=== PATIENT | male | born 1945 | race Caucasian/White ===

== ENCOUNTER 2016-12-20 14:40 | Outpatient (RCR) | payer BC ==
[~2016-12-20 14:40] MED LIST: ASPI-892 PO; ATOR40TA70 PO; CARV6.25 PO; CIPR500T4 PO; CYCL10TA45; DEXL60CA5 PO; FISH1CAP15 PO; HYDR-3816 PO; ISOS30TA3 PO; METO-272 PO; NF-SKEL800; NFAMINITAB PO; NITR0.4T SL; TICA90TA PO; VITA400T9 PO; [UNRECOGNIZED DRUG - OTHER] PO
== END 2017-03-20 | disposition home or self-care (01) ==
LOC: CARD 14:40
PROVIDERS: ATTEND Physician Assistant
DX: I25.118 Atherosclerotic heart disease of native coronary artery with other forms of angina pectoris (principal); E78.2 Mixed hyperlipidemia; I10 Essential (primary) hypertension
CPT/HCPCS: 93225; 93226

== ENCOUNTER → 2018-07-29 | Outpatient (CLI) | payer BC ==
[~2018-07-29] MED LIST changes: +HYDR-34 PO; -HYDR-3816 PO
== END ==
LOC: CARD 08:23
PROVIDERS: ATTEND Physician Assistant
DX: I25.10 Atherosclerotic heart disease of native coronary artery without angina pectoris (principal); K21.9 Gastro-esophageal reflux disease without esophagitis; E78.5 Hyperlipidemia, unspecified; I10 Essential (primary) hypertension; I08.1 Rheumatic disorders of both mitral and tricuspid valves
CPT/HCPCS: 93306

== ENCOUNTER → 2018-08-03 | Outpatient (CLI) | payer BC ==
[~2018-08-03] MED LIST changes: +CATHETER FLUSH 10 ML SYR IV PRN
[2018-08-03 08:48] VITALS: BP 172/79
--- NOTE | 2018-08-03 13:37 | STRESS TEST ---
DATE OF SERVICE: 08/03/2018 EXERCISE MYOVIEW STRESS TEST REPORT REFERRING PHYSICIAN: Dr. Lindsey. Baseline heart rate is 60. Baseline blood pressure is 170/79. Baseline EKG is sinus rhythm with no ischemic changes. In summary, the patient was injected with 10.75 mCi of technetium-99 Myoview and the resting images were obtained. Then, the patient started exercising with a baseline heart rate, blood pressure and EKG as mentioned above. At peak stress level, the patient was injected with 31.6 mCi of technetium-99 Myoview. The patient was able to exercise for a total of 9 minutes on standard John protocol. With peak exercise level, EKG was showing minimal nondiagnostic changes. Occasional PVCs were noted. During recovery, heart rate and blood pressure returned to baseline. EKG returned to baseline. The resting and stress images were reviewed and compared in the short axis, horizontal long axis and vertical long axis views. Review of the images showed diaphragmatic attenuation with decreased uptake involving the whole inferior wall, inferior apex and true apex with mild reversibility at the true apex and the inferior apex. SSS is 10, SDS 4 and TID value 0.95. On the gated images, the left ventricle appeared to be in normal size with mild hypokinesia at the septum, anteroseptum and inferoseptum. Calculated ejection fraction is 49%. CONCLUSION: 1. Good exercise tolerance, a total of 9 minutes on standard Ojhn protocol, 10.5 METS achieving 93% of maximum expected heart rate. 2. Baseline hypertension persisted throughout the test. 3. Minimal nondiagnostic EKG changes with exercise returned to baseline during recovery. 4. Diaphragmatic attenuation with mild ischemia involving the whole inferior wall, inferior apex and true apex. 5. Normal left ventricular size with septal hypokinesia. Calculated ejection fraction is 49%. Job ID: [id number] DocumentID: [id number] Dictated Date: 08/03/2018 10:59:26 Associate Professor Plant Pathology Date: 08/03/2018 13:37:25 Dictated By: MICHELLE ESQUIVEL MD
== END ==
LOC: CARD 07:09
PROVIDERS: ATTEND Physician Assistant
DX: I25.10 Atherosclerotic heart disease of native coronary artery without angina pectoris (principal); I10 Essential (primary) hypertension; E78.5 Hyperlipidemia, unspecified; K21.9 Gastro-esophageal reflux disease without esophagitis
CPT/HCPCS: 78452; 93017

== ENCOUNTER 2018-08-19 06:41 | Day surgery (SDC) | payer BC ==
[~2018-08-19] VITALS: Ht 167.6 cm; Wt 76.2 kg
[2018-08-19] VITALS (11 sets, daily range): BP systolic 128–168; BP diastolic 64–82
[~2018-08-19 06:41] MED LIST changes: -CATHETER FLUSH 10 ML SYR IV PRN
--- OUTSIDE RECORDS SUMMARY | 2018-08-19 06:44 | XMS REPORT | Continuity of Care Document ---
Author Author [facility] Organization [facility] Address Unknown Phone Unavailable Allergies Active Description Code Type Severity Reaction Onset Reported/Identified Relationship to Patient Clinical Status Yes No Known Drug Allergies [id number] Drug Allergy Unknown N/A 05/26/2008 Medications There is no data. Problems Date Dx Coded Attending Type Code Diagnosis Diagnosed By 10/17/2014 YANICK MOTA, DAVID [place] Ot 722.52 10/17/2014 Ot 411.1 INTERMED CORONARY SYND 10/17/2014 Ot 414.01 CORONARY ATHEROSCLEROSIS OF [place] CORON 10/17/2014 Ot 794.30 ABN CARDIOVASC STUDY NOS 10/17/2014 Ot V58.69 OTH MED,LT, CURRENT USE 11/24/2014 YANICK MOTA, DAVID [place] Ot 729.81 12/13/2014 YANICK MOTA, DAVID [place] Ot V45.81 12/13/2014 YANICK MOTA, DAVID [place] Ot V57.89 01/21/2015 DAVID HERNDON MD Ot V45.81 01/21/2015 YANICK MOTA, DAVID [place] Ot V57.89 03/12/2015 DAVID HERNDON MD Ot V45.81 AORTOCORONARY BYPASS 03/12/2015 YANICK MOTA, DAVID [place] Ot V57.89 REHABILITATION PROC NEC 09/13/2015 YANICK MOTA, DAVID [place] Ot 722.52 09/13/2015 DAVID HERNDON MD Ot 729.81 09/13/2015 DAVID HERNDON MD Ot V45.81 09/13/2015 DAVID HERNDON MD Ot V57.89 09/21/2015 MICHELLE ESQUIVEL MD Ot E78.5 HYPERLIPIDEMIA, UNSPECIFIED 09/21/2015 MICHELLE ESQUIVEL MD Ot I10 ESSENTIAL (PRIMARY) HYPERTENSION 09/21/2015 MICHELLE ESQUIVEL MD Ot I25.10 ATHSCL HEART DISEASE OF [place] CORONARY 09/21/2015 MICHELLE ESQUIVEL MD Ot I25.82 CHRONIC TOTAL OCCLUSION OF CORONARY [place] 09/21/2015 MICHELLE ESQUIVEL MD Ot R07.9 CHEST PAIN, UNSPECIFIED 09/21/2015 MICHELLE ESQUIVEL MD Ot R94.39 ABNORMAL RESULT OF OTHER CARDIOVASCULAR 09/21/2015 MICHELLE ESQUIVEL MD, Ot Z79.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 THERAPY 09/21/2015 MICHELLE ESQUIVEL MD, Ot Z95.1 PRESENCE OF AORTOCORONARY BYPASS GRAFT 09/22/2015 DAVID HERNDON MD Ot 722.52 09/22/2015 DAVID HERNDON MD Ot 729.81 09/22/2015 DAVID HERNDON MD Ot V45.81 09/22/2015 DAVID HERNDON MD, Ot V57.89 09/22/2015 MICHELLE ESQUIVEL MD, Ot E78.2 09/22/2015 MICHELLE ESQUIVEL MD, Ot I10 09/22/2015 MICHELLE ESQUIVEL MD Ot I20.8 09/22/2015 MICHELLE ESQUIVEL MD Ot I25.10 03/16/2016 LANE ESPINOSA MD Ot M54.5 LOW BACK PAIN 03/16/2016 LANE ESPINOSA MD Ot N13.2 HYDRONEPHROSIS WITH RENAL AND URETERAL C 03/16/2016 LANE ESPINOSA MD Ot R11.0 NAUSEA 03/18/2016 LANE ESPINOSA MD Ot M54.5 LOW BACK PAIN 03/18/2016 LANE ESPINOSA MD Ot N13.2 HYDRONEPHROSIS WITH RENAL AND URETERAL C 03/18/2016 LANE ESPINOSA MD Ot R11.0 NAUSEA 06/26/2016 DAVID HERNDON MD Ot 722.52 LUMB/LUMBOSAC DISC DEGEN 06/26/2016 DAVID HERNDON MD Ot 729.81 SWELLING OF LIMB 06/26/2016 DAVID HERNDON MD Ot V45.81 AORTOCORONARY BYPASS 06/26/2016 DAVID HERNDON MD Ot V57.89 REHABILITATION PROC NEC 06/26/2016 MICHELLE ESQUIVEL MD Ot E78.2 MIXED HYPERLIPIDEMIA 06/26/2016 MICHELLE ESQUIVEL MD Ot I10 ESSENTIAL (PRIMARY) HYPERTENSION 06/26/2016 SIERRA MOTA, MICHELLE Obregon Ot I20.8 OTHER FORMS OF ANGINA PECTORIS 06/26/2016 SIERRA MOTA, MICHELLE Obregon Ot I25.10 ATHSCL HEART DISEASE OF [place] CORONARY 06/27/2016 SINTIA BROWN, SAVANNAH Hernandez Ot E78.2 MIXED HYPERLIPIDEMIA 06/27/2016 SINTIA BROWN, SAVANNAH K Ot I10 ESSENTIAL (PRIMARY) HYPERTENSION 06/27/2016 SAVANNAH MENON Ot I25.10 ATHSCL HEART DISEASE OF [place] CORONARY 06/27/2016 SAVANNAH MENON K Ot K21.9 GASTRO-ESOPHAGEAL REFLUX DISEASE WITHOUT 07/02/2016 SARAN MENONTH K Ot E78.2 MIXED HYPERLIPIDEMIA 07/02/2016 SARAN MENONTH K Ot I10 ESSENTIAL (PRIMARY) HYPERTENSION 07/02/2016 SAVANNAH MENON Ot I25.10 ATHSCL HEART DISEASE OF [place] CORONARY 07/02/2016 SAVANNAH MENON K Ot K21.9 GASTRO-ESOPHAGEAL REFLUX DISEASE WITHOUT 07/15/2016 SARAN MENONTH K Ot E78.2 MIXED HYPERLIPIDEMIA 07/15/2016 SARAN MENONTH K Ot I10 ESSENTIAL (PRIMARY) HYPERTENSION 07/15/2016 SAVANNAH MENON Ot I25.10 ATHSCL HEART DISEASE OF [place] CORONARY 07/15/2016 SAVANNAH MENON K Ot K21.9 GASTRO-ESOPHAGEAL REFLUX DISEASE WITHOUT 01/09/2017 SAVANNAH MENON K Ot E78.2 MIXED HYPERLIPIDEMIA 01/09/2017 LOBO MENONDITH K Ot I10 ESSENTIAL (PRIMARY) HYPERTENSION 01/09/2017 SARAN MENONTH K Ot I25.118 ATHSCL HEART DISEASE OF [place] COR ART W 03/20/2017 SAVANNAH MENON K Ot E78.2 MIXED HYPERLIPIDEMIA 03/20/2017 LOBO MENONDITH K Ot I10 ESSENTIAL (PRIMARY) HYPERTENSION 03/20/2017 SAVANNAH MENON K Ot I25.118 ATHSCL HEART DISEASE OF [place] COR ART W 03/25/2017 SAVANNAH MENON Ot E78.2 MIXED HYPERLIPIDEMIA 03/25/2017 SAVANNAH MENON Ot I10 ESSENTIAL (PRIMARY) HYPERTENSION 03/25/2017 SAVANNAH MENON Ot I25.118 ATHSCL HEART DISEASE OF [place] COR ART W 07/31/2018 SAVANNAH MENON Ot E78.5 HYPERLIPIDEMIA, UNSPECIFIED 07/31/2018 SAVANNAH MENON Ot I08.1 RHEUMATIC DISORDERS OF BOTH MITRAL AND T 07/31/2018 SAVANNAH MENON Ot I10 ESSENTIAL (PRIMARY) HYPERTENSION 07/31/2018 SAVANNAH MENON Ot I25.10 ATHSCL HEART DISEASE OF [place] CORONARY 07/31/2018 SAVANNAH MENON Ot K21.9 GASTRO-ESOPHAGEAL REFLUX DISEASE WITHOUT 08/05/2018 SAVANNAH MENON Ot E78.5 HYPERLIPIDEMIA, UNSPECIFIED 08/05/2018 SAVANNAH MENON Ot I10 ESSENTIAL (PRIMARY) HYPERTENSION 08/05/2018 SAVANNAH MENON Ot I25.10 ATHSCL HEART DISEASE OF [place] CORONARY 08/05/2018 SAVANNAH MENON Ot K21.9 GASTRO-ESOPHAGEAL REFLUX DISEASE WITHOUT Procedures There is no data. Results There is no data. Encounters ACCT No. Visit Date/Time Discharge Status Pt. Type Provider Facility Loc./Unit Complaint [id number] 08/03/2018 07:09:00 08/03/2018 23:59:59 CLS Outpatient SAVANNAH MENON [facility] CARD CAD, ESOPHAGEAL REFLUX, HLD,HTN [id number] 07/29/2018 08:23:00 07/29/2018 23:59:59 CLS Outpatient SAVANNAH MENON [facility] CARD CAD, ESOPHAGEAL REFLUX,HLD,HTN [id number] 03/21/2017 15:15:00 03/21/2017 23:59:59 CLS Preadmit SAVANNAH MENON [facility] CARD I25.10,I20.8, E78.2,I10 [id number] 12/20/2016 14:40:00 03/20/2017 00:01:00 DIS Outpatient SAVANNAH MENON [facility] CARD I25.10,I20.8 ,E78.2,I10 [id number] 06/26/2016 09:37:00 06/26/2016 23:59:59 CLS Outpatient SAVANNAH MENON [facility] CARD CAD,GERD,HLD ,HTN [id number] 03/16/2016 17:56:00 03/16/2016 20:34:[address] ESPINOSA MD [facility] ER L SIDE LOWER BACK/ABD PAIN [id number] 09/20/2015 06:43:00 09/20/2015 23:59:59 CLS Outpatient MICHELLE ESQUIVEL MD [facility] CATH ABNORMAL STRESS TEST,CAD ,HLP,HTN,CHEST PAIN [id number] 09/13/2015 07:31:00 09/13/2015 23:59:59 CLS Outpatient MICHELLE ESQUIVEL MD [facility] CARD CAD,CHEST PAIN CARDIAC, HTN,HLD [id number] 03/13/2015 10:00:00 03/13/2015 23:59:59 CLS Preadmit DAVID HERNDON MD [facility] CR CABG [id number] 03/08/2015 11:46:00 03/12/2015 00:01:00 DIS Outpatient DAVID HERNDON MD [facility] CR CABG [id number] 11/14/2014 15:59:00 11/14/2014 23:59:59 CLS Outpatient DAVID HERNDON MD [facility] RAD SWELLING OF LOWER LIMB [id number] 05/31/2013 15:36:00 05/31/2013 23:59:59 CLS Outpatient DAVID HERNDON MD [facility] RAD BACK PAIN [id number] 08/19/2018 09:00:00 PEN Preadmit MICHELLE ESQUIVEL MD [facility] CATH ABN STRESS TEST [id number] 10/17/2014 08:23:00 Document Registration
[2018-08-19] MEDS ORDERED: NS IV 1000 ML 1,000 ML ONE (06:52)
[2018-08-19] MEDS ORDERED: HEParin (CATH LAB) 2,000 ML IV ONE (06:52)
[2018-08-19] MEDS ORDERED: LIDOCAINE 1% INJ 20 ML 20 ML VIAL ONE (06:52)
[2018-08-19] MEDS ORDERED: NS IV 1000 ML 1,000 ML IV SCH ×2 (07:00→09:14)
[2018-08-19 07:17] LABS: BILIRUBIN,URINE NEGATIVE (NEGATIVE); CLARITY,URINE CLEAR; COLOR,URINE YELLOW; GLUCOSE, URINE (UA) NEGATIVE (NEGATIVE); KETONES,URINE NEGATIVE (NEGATIVE); LEUKOCYTE ESTERASE ,URINE NEGATIVE (NEGATIVE); NITRITE,URINE NEGATIVE (NEGATIVE); PH,URINE 5 (5-9); PROTEIN,URINE NEGATIVE (NEGATIVE); UROBILINOGEN,URINE NORMAL (NORMAL)
[2018-08-19 07:17] LABS: HEMOGLOBIN 12.4 G/DL (13.3-17.7); MEAN PLATELET VOLUME 10.1 FL (7.4-10.4); RED BLOOD COUNT 4.27 10^6/uL (4.35-5.85); RED CELL DISTRIBUTION WIDTH 13.1 % (10.0-14.5); WHITE BLOOD COUNT 4.9 10^3/uL (4.3-11.0)
[2018-08-19 07:24] LABS: BACTERIA,URINE NEGATIVE /HPF; RBC,URINE RARE /HPF; WBC,URINE RARE /HPF
[2018-08-19 07:27] LABS: PROTHROMBIN TIME PATIENT 13.2 SEC (12.2-14.7)
[2018-08-19] MEDS ORDERED: MV-M1TAB38 PO (07:27)
[2018-08-19] MEDS ORDERED: LISI-556 PO (07:27)
[2018-08-19] MEDS ORDERED: FERR-84 PO (07:27)
[2018-08-19] MEDS ORDERED: FISH1CAP15 PO (07:27)
[2018-08-19] MEDS ORDERED: ASPI-586 PO (07:27)
[2018-08-19] MEDS ORDERED: VITA200C60 PO (07:27)
[2018-08-19] MEDS ORDERED: MIDAZOLAM 5 MG/5 ML (VERSED) VIAL ONE (07:29)
[2018-08-19] MEDS ORDERED: fentaNYL INJECTION 100 MCG/2 ML AMP ONE (07:29)
--- NOTE | 2018-08-19 07:31 | Diagnostic Imaging Report ---
INDICATION: Abnormal stress test, chest pain, coronary artery disease, hypertension.. TECHNIQUE: Single view chest 7:20 a.m. CORRELATION STUDY: 09/20/2015. FINDINGS: Poststernotomy changes. Heart size, mediastinum and vasculature overall within normal limits. Lung marquez remain relatively clear. IMPRESSION: 1. Generally stable chest demonstrate no acute abnormality. Poststernotomy changes. Dictated by: Dictated on workstation # [id number]
[2018-08-19 07:37] LABS: ALANINE AMINOTRANSFERASE 40 U/L (0-55); ALBUMIN 4.1 GM/DL (3.2-4.5); ALKALINE PHOSPHATASE 74 U/L (40-136); BILIRUBIN,TOTAL 0.6 MG/DL (0.1-1.0); BUN/CREATININE RATIO 17; CALCIUM 8.7 MG/DL (8.5-10.1); CARBON DIOXIDE 25 MMOL/L (21-32); CHLORIDE 106 MMOL/L (98-107); CHOLESTEROL 100 MG/DL (< 200); CREATININE SERUM 0.86 MG/DL (0.60-1.30); GFR ESTIMATED > 60; GLUCOSE 99 MG/DL (70-105); HDL CHOLESTEROL 33 MG/DL (40-60); POTASSIUM 3.7 MMOL/L (3.6-5.0); SODIUM 141 MMOL/L (135-145); TOTAL PROTEIN 6.9 GM/DL (6.4-8.2); TRIGLYCERIDES 60 MG/DL (<150); VLDL CHOLESTEROL 12 MG/DL (5-40)
[2018-08-19] MEDS ORDERED: FLU QUADRIvalent (5+ YOA) 2018-2019 (AFLURIA) 0.5 ML IM ONE (07:45)
--- NOTE | 2018-08-19 08:42 | Cardiac Procedure Note-CS/ASA ---
Pre-Procedure Note Pre-Op Procedure Note H&P Reviewed The H&P was reviewed, patient examined and no changes noted. Date H&P Reviewed: Aug 19, 2018 Time H&P Reviewed: 08:42 Conscious Sedation Pre-Proced Time 08:42 ASA Score 3 For ASA 3 and 4: Consider anesthesia and medical clearance. Also, for patients with a history of failed moderate sedation consider anesthesia. Airway Lungs Heart ASA score ASA 1: a normal healthy patient ASA 2: a patient with a mild systemic disease (mid diabetes, controlled hypertension, obesity x ASA 3: a patient with a severe systemic disease that limits activity (angina , COPD, prior Myocardial infarction) ASA 4: a patient with an incapacitating disease that is a constant threat to life (CHF, renal failure) ASA 5: a moribund patient not expected to survive 24 hrs. (ruptured aneurysm) ASA 6: a declared brain patient whose organs are being harvested. For emergent operations, add the letter E after the classification Mallampati Classification Grade 3 Sedation Plan Analgesia, Amnesia, Plan communicated to team members, Discussed options with patient/fam, Discussed risks with patient/fam The patient is an appropriate candidate to undergo the planned procedure, sedation, and anesthesia. The patient immediately re-assessed prior to indication. MICHELLE ESQUIVEL MD Aug 19, 2018 08:42
[2018-08-19] MEDS ORDERED: PATIENT MAY USE OWN MEDS, ALL PO SCH (09:15)
--- NOTE | 2018-08-19 09:17 | Discharge Inst-Post CATH ---
Discharge Inst-CATH/EP Post Cardiac Cath/EP D/C Inst Follow Up/Plan Appointment with Dr Awad's office in 2-4 weeks CARDIAC CATH DISCHARGE INSTRUCTIONS *Hold Metformin for 48 hours post heart cath. ACTIVITY * Go Home directly and rest. * Limit activity of the leg (or wrist if it was used) for 7 days including aerobics, swimming, jogging, bicycling, etc. * Restrict stair-climbing for 7 days if possible, if not, climb up with your non -cath leg, then bring together on the same step. * Avoid lifting, pushing, pulling or excessive movement of the affected extremity for 7 days. * Customary sexual activity may be resumed after 2 days-use caution not to use a position that strains or causes pain to the affected extremity. * No driving for 24 hours. * NO SMOKING. * Avoid straining for bowel movements for 7 days. * Gentle walking on level ground is allowed. * Returning to work will depend on the type of procedure and the results. Your doctor will discuss this with you. CALL YOUR DOCTOR FOR ANY OF THE FOLLOWING: *If bleeding from the puncture site occurs- Apply gentle pressure to site with clean cloth and call your doctor or EMS. * If a knot or lump forms under the skin, increases in size, or causes pain. * If bruising appears to be worsening or moving further down your leg instead of disappearing. * Temperature above 101 F. CARE OF YOUR GROIN INCISION; * Bruising or purple discoloration of the skin near the puncture site is common. * You may shower only, no bathtub bathing for 5 days. Be careful to avoid slipping as your leg may feel stiff. * If a closure device was used on your femoral artery, please see the attached guide regarding care of the device and your leg. * Leave the dressing on, until removed by office staff. CARE OF YOUR WRIST INCISION; * Bruising or purple discoloration of the skin near the puncture site is common. * You may shower. * DO NOT submerge wrist. * Leave dressing on, until removed by office staff.. MICHELLE AWAD MD Aug 19, 2018 09:17
--- NOTE | 2018-08-19 09:23 | Cardiac Cath Report ---
Cardiac Cath Report Physician (s)/Jalousie Installer (s) Physician MICHELLE ESQUIVEL MD Pre-Procedure Diagnosis Pre-Procedure Diagnosis: CAD Post-Procedure Note Procedure Start Date: Aug 19, 2018 Name of Procedure: left heart catheterization Vein graft and FRANCIS angiogram Findings/Procedure Note PROCEDURE NOTE: After explaining the procedure to the patient, all pros and cons were explained , all questions were answered. The patient signed the consent and then he was placed on the cardiac catheterization laboratory. Groin was prepped SL fashion local anesthesia was used. Sheath placed in the right femoral artery. Benji right and left catheter were used to access the coronary system. Pigtail was used to access the left ventricular cavity, Benji right catheter was used to access the vein graft, vein graft angiogram was done, advanced to the FRANCIS and FRANCIS angiogram was done. Left ventriculogram was done At the end of the procedure the sheath was removed. Closure device was used FINDINGS: Hemodynamics LV 121/20, end-diastolic pressure of 20 Aorta 126/54 mean of 80 ANATOMY: Left Main has severe distal stenosis Left Anterior Descending has severe ostial stenosis, FRANCIS to LAD is patent, beyond the anastomosis point there is an area of moderate to severe stenosis, the artery is fairly small about 1 mm in diameter. Not amendable to intervention Left Circumflex has severe ostial stenosis, the vein graft to the first obtuse marginal branch is patent, vein graft to the second obtuse marginal branch is occluded Right Coronory Artery has 60 percent ostial stenosis, stents are patent in the mid and distal right coronary artery, the PDA is occluded and the vein graft to the PDA is occluded LV Gram was not done, pressure was measured CONCLUSION: 1. Severe distal left main coronary artery stenosis involving the ostial LAD and circumflex artery corrected by the bypass arteries 2. Patent FRANCIS to LAD with severe stenosis beyond the anastomosis point, the artery at that area is fairly small about 1 mm in diameter. Medical therapy is recommended 3. Patent vein graft to the first obtuse marginal branch, occluded vein graft to the second obtuse marginal branch 4. 60 percent ostial right coronary artery stenosis, patent stent in the mid and distal right coronary artery, occluded right PDA and vein graft to the PDA 5. Mildly elevated left ventricular end-diastolic pressure DISCUSSION AND RECOMMENDATION: small vessel disease not amendable to percutaneous intervention, medical therapy is recommended Anesthesia Type: Conscious Sedation Estimated blood loss (mL): 20 ml Contrast Amount: 63 ml Total Radiation Dose: 395 mGy Post-Procedure Diagnosis Post-operative diagnosis: Coronary artery disease Hypertension Hyperlipidemia Chest pain MICHELLE ESQUIVEL MD Aug 19, 2018 09:23
== END 2018-08-19 14:17 | disposition home or self-care (01) ==
LOC: CATH 06:41 → SDC 09:31 → CATH 14:17
PROVIDERS: ATTEND Internal Medicine Cardiovascular Disease
DX: I25.10 Atherosclerotic heart disease of native coronary artery without angina pectoris (principal); I10 Essential (primary) hypertension; E78.5 Hyperlipidemia, unspecified; R07.9 Chest pain, unspecified; Z11.2 Encounter for screening for other bacterial diseases; K21.9 Gastro-esophageal reflux disease without esophagitis; I65.23 Occlusion and stenosis of bilateral carotid arteries; Z95.1 Presence of aortocoronary bypass graft; Z79.899 Other long term (current) drug therapy; Z79.82 Long term (current) use of aspirin
CPT/HCPCS: 36415; 71045; 80053; 80061; 81000; 85027; 85610; 85730; 87081; 93459

== ENCOUNTER → 2021-01-09 | Outpatient (CLI) | payer BC ==
[~2021-01-09] MED LIST changes: +ASPI-586 PO; -CIPR500T4 PO; +CIPR500T5 PO; +FERR-84 PO; -ISOS30TA3 PO; +ISOS30TA82 PO; +LISI-729 PO; +MV-M1TAB38 PO; +VITA200C60 PO
== END ==
LOC: CARD 11:03
PROVIDERS: ATTEND Internal Medicine Cardiovascular Disease
DX: I08.0 Rheumatic disorders of both mitral and aortic valves (principal); I11.9 Hypertensive heart disease without heart failure
CPT/HCPCS: 93306

== ENCOUNTER → 2021-04-11 | Outpatient (CLI) | payer BC ==
[~2021-04-11] MED LIST changes: +CATHETER FLUSH 10 ML SYR IV PRN
[2021-04-11 09:45] VITALS: BP 135/73
--- NOTE | 2021-04-11 12:12 | Cardiology Stress Test Report ---
Stress Test Report Date of Procedure/Referring: Date of Procedure: Apr 11, 2021 PCP Michelle Awad MD Admitting Physician Liam Lindsey MD Indications: CAD Baseline Heart Rate: 50 Baseline Blood Pressure: Blood Pressure Systolic: 135 Blood Pressure Diastolic: 73 Vital Signs Date Time Temp Pulse Resp B/P (MAP) Pulse Ox O2 Delivery O2 Flow Rate FiO2 04/11/21 09:45 51 18 135/73 (93) 99 Room Air Baseline Vital Signs Vital Signs Date Time Temp Pulse Resp B/P (MAP) Pulse Ox O2 Delivery O2 Flow Rate FiO2 04/11/21 09:45 51 18 135/73 (93) 99 Room Air Baseline EKG: Baseline EKG: NSR Summary: After explaining the procedure and details to the patient, he signed the consent and was brought to the stress nuclear laboratory. Patient exercised on standard John protocol, EKG, heart rate and blood pressure were monitored continuously, resting and stress doses of radio tracer were injected, imaging was acquired and reviewed in the short axis, horizontal long axis and vertical long axis views Patient was able to exercise for a total of 7 minutes on John protocol, METs 8.3 Maximum heart rate 142 Maximum blood pressure 203/77 Stress EKG, Minimal nondiagnostic changes Recovery EKG, Return to baseline TID: 1.06 SSS: 4 SDS: 1 EF: 47 Conclusion: 1. Good exercise tolerance for a total of 7 minutes on standard John protocol, 8.3 METS achieving 97% of maximal expected heart rate 2. Appropriate heart rate response to exercise with hypertensive response to exercise return to baseline during recovery 3. Nondiagnostic EKG changes with exercise return to baseline during recovery 4. Decreased uptake involving the mid to apical inferior wall and inferolateral wall with mild reversibility, correlate with the known occluded right PDA and the vein graft to the PDA. Considered high risk for intervention 5. Normal left ventricular size with mild hypokinesia of the inferior wall and inferolateral wall with ejection fraction 47% MICHELLE AWAD MD Apr 11, 2021 12:12
== END ==
LOC: CARD 08:30
PROVIDERS: ATTEND Internal Medicine Cardiovascular Disease
DX: I25.10 Atherosclerotic heart disease of native coronary artery without angina pectoris (principal); I10 Essential (primary) hypertension
CPT/HCPCS: 78452; 93017; A9502

== ENCOUNTER 2021-05-13 13:15 | Emergency (ER) | payer BC ==
[~2021-05-13] VITALS: Ht 167 cm; Wt 61.0 kg
[~2021-05-13 13:15] MED LIST changes: -CATHETER FLUSH 10 ML SYR IV PRN
[2021-05-13 13:20] VITALS: BP 147/67
[2021-05-13 13:38] LABS: BILIRUBIN,URINE NEGATIVE (NEGATIVE); CLARITY,URINE CLEAR; COLOR,URINE YELLOW; GLUCOSE, URINE (UA) NEGATIVE (NEGATIVE); KETONES,URINE NEGATIVE (NEGATIVE); LEUKOCYTE ESTERASE ,URINE NEGATIVE (NEGATIVE); NITRITE,URINE NEGATIVE (NEGATIVE); PROTEIN,URINE NEGATIVE (NEGATIVE)
[2021-05-13 13:46] LABS: BACTERIA,URINE NEGATIVE /HPF; SQUAMOUS EPITHELIAL CELL,UR RARE /HPF; WBC,URINE RARE /HPF
[2021-05-13] MEDS ORDERED: KETOROLAC 30 MG/ML VIAL IVP STA (13:49)
[2021-05-13] MEDS ORDERED: NS IV 1000 ML 1,000 ML IV SCH (14:00)
--- NOTE | 2021-05-13 14:17 | ED Back Pain ---
General Chief Complaint: Back Problems Stated Complaint: LOW BACK PAIN Nursing Triage Note: ARRIVED VIA AMB WITH COMPLAINS OF LEFT SIDED KIDNEY PAIN SINCE FRIDAY. History of Present Illness Date Seen by Provider: May 13, 2021 Time Seen by Provider: 13:25 Initial Comments 75-year-old male presents for left flank pain. He states his symptoms began on 05/11/2021. They were pretty significant on that day he even took an outdated hydrocodone to help with the pain. He had mild nausea related to the pain. Yesterday, symptoms were improved and he was active. Today he reports pain to be worse. He took Ibuprofen 200 mg at 0700 today. No vomiting today. Reports his pain 12/02. Location: Other (left flank) Timing/Duration: 2-3 Days Severity: Mild Associated Symptoms: No loss of bladder control, No loss of bowel control Allergies and Home Medications Allergies Coded Allergies: No Known Drug Allergies (Verified , 05/26/08) Patient Home Medication List Home Medication List Reviewed: Yes Aspirin (Aspir 81) 81 Mg Tablet.dr, 81 MG PO DAILY, (Reported) Entered as Reported by: JAY HAUSER on 08/19/18726 Atorvastatin Calcium (Atorvastatin Calcium) 40 Mg Tablet, 40 MG PO HS, (Reported) Entered as Reported by: JAY HAUSER on 09/20/15 07 Carvedilol (Coreg) 6.25 Mg Tablet, 6.25 MG PO BID, (Reported) Entered as Reported by: JAY HAUSER on 09/20/15732 Ferrous Sulfate (Iron) 325 Mg Tablet, 325 MG PO DAILY, (Reported) Entered as Reported by: JAY HAUSER on 08/19/18726 Fish Oil/Dha/Epa (Fish Oil 1,200 mg Fish Oil) 1 Each Capsule, 1 EACH PO BID, (Reported) Entered as Reported by: JAY HAUSER on 08/19/18726 Hydrocodone/Acetaminophen (Hydrocodone-Acetamin 5-325 mg) 1 Each Tablet, 1 TAB PO Q6H PRN for PAIN-MODERATE (5-7) Prescribed by: YAMINI LINDQUIST on 05/13/21 1501 Isosorbide Mononitrate (Isosorbide Mononitrate ER) 30 Mg Tab.er.24h, 30 MG PO, (Reported) Entered as Reported by: ROOSEVELT HERNANDEZ on 7/23/16 1854 Lisinopril (Lisinopril) 5 Mg Tablet, 5 MG PO DAILY, (Reported) Entered as Reported by: JAY HAUSER on 08/19/18726 Mv-Mn/FA/Vit K/Lycop/Lut/Zeaxa (Ocuvite Eye + Multi Tablet) 1 Each Tablet, 1 EACH PO DAILY, (Reported) Entered as Reported by: JAY HAUSER on 08/19/18726 Ondansetron (Ondansetron Odt) 4 Mg Tab.rapdis, 4 MG PO Q6H PRN for NAUSEA/V OMITING Prescribed by: YAMINI LINDQUIST on 05/13/211499 Tamsulosin HCl (Flomax) 0.4 Mg Cap, 0.4 MG PO DAILY Prescribed by: YAMINI LINDQUIST on 05/13/211499 Vitamin E (Dl,Tocopheryl Acet) (Vitamin E) 200 Unit Capsule, 200 UNIT PO DAILY, (Reported) Entered as Reported by: JAY HAUSER on 08/19/18726 Review of Systems Constitutional: no symptoms reported Genitourinary: see HPI; No dysuria, No frequency; pain (left flank) All Other Systems Reviewed Negative Unless Noted: Yes Past Aepeyxg-Rawnie-Slpvcm Hx Patient Social History Smoking Status: Never a Smoker Substance use?: No Alcohol Frequency: Rarely Immunizations Up To Date Second COVID19 Vaccination Maik: 11/12 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 0.0oz. 76.689650lo; 21.00 BMI Method:Stated General Appearance: No Apparent Distress, WD/WN Cardiovascular: Regular Rate, Rhythm, No Edema, No Murmur, Normal Peripheral Pulses Respiratory: Chest Non Tender, Lungs Clear, Normal Breath Sounds Gastrointestinal: Normal Bowel Sounds, Non Tender, Soft Back: Normal Inspection, No CVA Tenderness, CVA Tenderness (L); No CVA Tenderness (R) Neurologic/Psychiatric: Alert, Oriented x3, No Motor/Sensory Deficits, Normal Mood/Affect Progress/Results/Core Measures Results/Orders Lab Results Laboratory Tests Test 05/13/21 13:30 Range/Units Urine Color YELLOW Urine Clarity CLEAR Urine pH 6.0 5-9 Urine Specific [place] 1.020 1.016-1.022 Urine Protein NEGATIVE NEGATIVE Urine Glucose (UA) NEGATIVE NEGATIVE Urine Ketones NEGATIVE NEGATIVE Urine Nitrite NEGATIVE NEGATIVE Urine Bilirubin NEGATIVE NEGATIVE Urine Urobilinogen 0.2 < = 1.0 MG/DL Urine Leukocyte Esterase NEGATIVE NEGATIVE Urine RBC (Auto) 1+ H NEGATIVE Urine RBC NONE /HPF Urine WBC RARE /HPF Urine Squamous Epithelial Cells RARE /HPF Urine Crystals NONE /LPF Urine Bacteria NEGATIVE /HPF Urine Casts NONE /LPF Urine Mucus NEGATIVE /LPF Urine Culture Indicated NO My Orders Orders - YAMINI LINDQUIST Ua Culture If Indicated (05/13/21 13:28) Ct Abd/Pelvis Wo(Kidney Stone) (05/13/21 13:49) Vital Signs/I&O 05/13/21 13:20 Temp 36.7 Pulse 64 Resp 16 B/P (MAP) 147/67 (93) Pulse Ox 99 O2 Delivery Room Air Blood Pressure Mean: 93 Progress Progress Note : Time: 13:25 Progress Note Patient seen and evaluated, will obtain UA, normal saline 1 L per IV and Toradol 30 mg IV. [address], reports less pain, declines need for Toradol or IV fluids at this time. He is drinking water, no nausea or vomiting. 1445 CT shows 5 mm stone in the distal left ureter. Patient continues to deny pain at this time. He is drinking water with no nausea or vomiting. Discharge instructions and return precautions reviewed with the patient. Strainer provided. Diagnostic Imaging Diagonstic Imaging: CT Plain Films/CT/US/NM/MRI: abdomen, pelvis Comments NAME: LORRAINE GUTIERREZ [facility] REC#: [id number] PT STATUS: REG ER : 1945 PHYSICIAN: YAMINI LINDQUIST ADMIT DATE: 05/13/21/ER Draft Date of Exam:05/13/21 CT ABD/PELVIS WO(KIDNEY STONE) PROCEDURE: CT urinary tract, rule out kidney stone. TECHNIQUE: Multiple contiguous axial images were obtained through the abdomen and pelvis without the use of intravenous contrast. Auto Exposure Controls were utilized during the CT exam to meet ALARA standards for radiation dose reduction. DATE: May 13, 2021. COMPARISON: CT abdomen and pelvis March 16, 2016. INDICATION: 75-year-old male, left flank pain. FINDINGS: There are limitations for evaluation of the abdominal organs, neoplastic processes, abscess, and limited evaluation of the vasculature relating to the lack of intravenous contrast. There are dependent opacities in the left lower lobe which may relate to trace pleural effusion, pleural thickening, and/or adjacent atelectasis. The heart is not enlarged. There is no pericardial effusion. The liver is unremarkable in size and contour. The gallbladder is unremarkable. There is no intrahepatic or extrahepatic bile duct dilation. The main pancreatic duct is not grossly dilated. Limited noncontrast evaluation of the pancreatic parenchyma is unremarkable. The spleen is normal in size. The adrenal glands are unremarkable. There is mild left hydronephrosis. There is a stone at the left distal ureterovesical junction measuring 5 mm in size on axial image 93. There is no right renal or ureteral stone or hydronephrosis. The intestinal tract is not distended. There is no evidence to suggest acute appendicitis. There is no free intraperitoneal air, drainable fluid collection, or free pelvic fluid. There are atherosclerotic calcifications. There is no identified abnormally enlarged lymph node in the abdomen or pelvis meeting CT size criteria for adenopathy. There are median sternotomy wires. There is no identified acute bony abnormality. IMPRESSION: CT ABDOMEN AND PELVIS. 1. 5 mm stone in left distal ureter at the level of the ureterovesical junction with mild left hydronephrosis. 2. Trace left pleural effusion and/or pleural thickening and/or adjacent atelectasis. Dictated on workstation # [id number] Dict: 05/13/21 1416 Trans: 05/13/21 1428 [facility] [id number] Departure Impression Primary Impression: Acute left flank pain Additional Impression: Urolithiasis Qualified Codes: N20.1 - Calculus of ureter Disposition: 01 HOME, SELF-CARE Condition: Improved Departure-Patient Inst. Decision time for Depature: 14:45 Referrals: ADVID HERNDON MD (PCP/Family) Primary Care Physician Patient Instructions: Kidney Stones (DC) Add. Discharge Instructions: Increase water intake, 16 ounces every 2 hours while awake. Strain your urine. Use the Zofran for any nausea or vomiting. Take ibuprofen 600 mg every 8 hours for pain or fever. Use the hydrocodone for increased pain. Follow-up with your primary care provider if symptoms are not improving or worsen. All discharge instructions reviewed with patient and/or family. Voiced understanding. Scripts Hydrocodone/Acetaminophen (Hydrocodone-Acetamin 5-325 mg) 1 Each Tablet 1 TAB PO Q6H PRN for PAIN-MODERATE (5-7), #12 TAB 0 Refills Prov: YAMINI LINDQUIST 05/13/21 Ondansetron (Ondansetron Odt) 4 Mg Tab.rapdis 4 MG PO Q6H PRN for NAUSEA/VOMITING, #8 TAB 0 Refills Prov: YAMINI LINDQUIST 05/13/21 Tamsulosin HCl (Flomax) 0.4 Mg Cap 0.4 MG PO DAILY for 14 Days, #14 CAP 0 Refills Prov: YAMINI LINDQUIST 05/13/21 YAMINI LINDQUIST May 13, 2021 14:17
--- NOTE | 2021-05-13 14:28 | Diagnostic Imaging Report ---
PROCEDURE: CT urinary tract, rule out kidney stone. TECHNIQUE: Multiple contiguous axial images were obtained through the abdomen and pelvis without the use of intravenous contrast. Auto Exposure Controls were utilized during the CT exam to meet ALARA standards for radiation dose reduction. DATE: May 13, 2021. COMPARISON: CT abdomen and pelvis March 16, 2016. INDICATION: 75-year-old male, left flank pain. FINDINGS: There are limitations for evaluation of the abdominal organs, neoplastic processes, abscess, and limited evaluation of the vasculature relating to the lack of intravenous contrast. There are dependent opacities in the left lower lobe which may relate to trace pleural effusion, pleural thickening, and/or adjacent atelectasis. The heart is not enlarged. There is no pericardial effusion. The liver is unremarkable in size and contour. The gallbladder is unremarkable. There is no intrahepatic or extrahepatic bile duct dilation. The main pancreatic duct is not grossly dilated. Limited noncontrast evaluation of the pancreatic parenchyma is unremarkable. The spleen is normal in size. The adrenal glands are unremarkable. There is mild left hydronephrosis. There is a stone at the left distal ureterovesical junction measuring 5 mm in size on axial image 93. There is no right renal or ureteral stone or hydronephrosis. The intestinal tract is not distended. There is no evidence to suggest acute appendicitis. There is no free intraperitoneal air, drainable fluid collection, or free pelvic fluid. There are atherosclerotic calcifications. There is no identified abnormally enlarged lymph node in the abdomen or pelvis meeting CT size criteria for adenopathy. There are median sternotomy wires. There is no identified acute bony abnormality. IMPRESSION: CT ABDOMEN AND PELVIS. 1. 5 mm stone in left distal ureter at the level of the ureterovesical junction with mild left hydronephrosis. 2. Trace left pleural effusion and/or pleural thickening and/or adjacent atelectasis. Dictated by: Dictated on workstation # [id number]
[2021-05-13] MEDS ORDERED: ONDA4TAB11 PO (15:00)
[2021-05-13] MEDS ORDERED: ACHD5005 PO (15:00)
[2021-05-13] MEDS ORDERED: TMSL.4C PO (15:00)
== END 2021-05-13 15:07 | disposition home or self-care (01) ==
LOC: EDUNIT# 13:15 → ER 13:18
DX: N13.2 Hydronephrosis with renal and ureteral calculous obstruction (principal); I10 Essential (primary) hypertension; E78.00 Pure hypercholesterolemia, unspecified; I25.10 Atherosclerotic heart disease of native coronary artery without angina pectoris; Z79.82 Long term (current) use of aspirin; Z79.899 Other long term (current) drug therapy
CPT/HCPCS: 74176; 81000

== ENCOUNTER → 2022-07-10 | Day surgery (SDC) | payer BC ==
[~2022-07-10] VITALS: Ht 170.2 cm; Wt 75.5 kg
[~2022-07-10] MED LIST changes: +ACHD5005 PO; +CAND16TA29 PO; +HEParin (CATH LAB) 2,000 ML IV ONE; +LIDOCAINE 1% INJ 30 ML (XYLOCAINE) VIAL ONE; -LISI-729 PO; +LISI5TAB20 PO; +MIDAZOLAM 5 MG/5 ML (VERSED) VIAL ONE; +NS IV 1000 ML 1,000 ML IV SCH; +NS IV 1000 ML 1,000 ML ONE; +ONDA4TAB11 PO; +PATIENT MAY USE OWN MEDS, ALL PO SCH; +TMSL.4C PO; +fentaNYL INJ 100 MCG/2 ML AMP ONE
[2022-07-10 07:16] VITALS: BP 191/91
[2022-07-10 07:27] LABS: HEMATOCRIT 41 % (40-54); HEMOGLOBIN 13.3 g/dL (13.3-17.7); MEAN CORPUSCULAR HEMOGLOBIN 30 pg (25-34); MEAN CORPUSCULAR HGB CONC 33 g/dL (32-36); MEAN CORPUSCULAR VOLUME 91 fL (80-99); MEAN PLATELET VOLUME 10.6 fL (9.0-12.2); PLATELET COUNT 188 10^3/uL (130-400); WHITE BLOOD COUNT 4.5 10^3/uL (4.3-11.0)
[2022-07-10 07:39] LABS: PROTHROMBIN TIME PATIENT 13.5 SEC (12.2-14.7)
[2022-07-10 07:48] LABS: ALBUMIN 4.3 GM/DL (3.2-4.5); BILIRUBIN,TOTAL 0.6 MG/DL (0.1-1.0); CALCIUM 8.9 MG/DL (8.5-10.1); CREATININE SERUM 0.87 MG/DL (0.60-1.30); POTASSIUM 3.5 MMOL/L (3.6-5.0); TOTAL PROTEIN 7.4 GM/DL (6.4-8.2)
--- NOTE | 2022-07-10 08:15 | Cardiac Procedure Note-CS/ASA ---
Pre-Procedure Note Pre-Op Procedure Note Date of Available H&P: Jul 04, 2022 Date H&P Reviewed: Jul 10, 2022 Time H&P Reviewed: 08:15 History & Physical: H&P Reviewed, Patient Examed, No changes noted Pre-Operative Diagnosis: CAD Conscious Sedation Pre-Proced Time 08:15 ASA Score 3 For ASA 3 and 4: Consider anesthesia and medical clearance. Also, for patients with a history of failed moderate sedation consider anesthesia. Airway Lungs Heart ASA score ASA 1: a normal healthy patient ASA 2: a patient with a mild systemic disease (mid diabetes, controlled hypertension, obesity ASA 3: a patient with a severe systemic disease that limits activity (angina, COPD, prior Myocardial infarction) ASA 4: a patient with an incapacitating disease that is a constant threat to life (CHF, renal failure) ASA 5: a moribund patient not expected to survive 24 hrs. (ruptured aneurysm) ASA 6: a declared brain- patient whose organs are being harvested. For emergent operations, add the letter E after the classification Mallampati Classification Grade 3 Sedation Plan Analgesia, Amnesia, Plan communicated to team members, Discussed options with patient/fam, Discussed risks with patient/fam The patient is an appropriate candidate to undergo the planned procedure, sedation, and anesthesia. The patient immediately re-assessed prior to indication. MICHELLE ESQUIVEL MD Jul 10, 2022 08:15
--- NOTE | 2022-07-10 08:38 | Diagnostic Imaging Report ---
EXAMINATION: Chest radiograph, portable AP view. DATE: 07/10/2022 7:26 AM INDICATION: 77-year-old male, exam prior to heart catheterization. COMPARISON: August 19, 2018. FINDINGS: There are median sternotomy wires. Heart size and mediastinal contours are unchanged. There is no identified pneumothorax. There is no identified interval focal airspace consolidation. There is stable mild blunting of the left lateral costophrenic angle. The right humeral head is superiorly subluxed. There are advanced right acromioclavicular degenerative changes. There are mild left acromioclavicular degenerative changes. There are degenerative changes of the spine. IMPRESSION: 1. No identified acute cardiopulmonary abnormality. Dictated by: Dictated on workstation # [id number]
--- NOTE | 2022-07-10 10:08 | Cardiac Cath Report ---
Cardiac Cath Report Physician (s)/[employer] (s) Physician MICHELLE ESQUIVEL MD Pre-Procedure Diagnosis Pre-Procedure Diagnosis: CAD Post-Procedure Note Procedure Start Date: Jul 10, 2022 Name of Procedure: Left heart cath Vein graft angiogram FRANCIS angiogram Findings/Procedure Note PROCEDURE NOTE: 77 years old gentleman with history of coronary artery disease, CABG, had and abnormal stress test, cardiac cath was advised After explaining the procedure to the patient, all pros and cons were explained, all questions were answered. The patient signed the consent and then he was stefanie julius on the cardiac catheterization laboratory. Groin was prepped SL fashion local anesthesia was used. Sheath placed in the artery. Benji right and left catheter were used to access the coronary system.Vein Graft evaluated. FRANCIS evaluated. Pigtail was used to access the left ventricular cavity. Left ventriculogram was not done At the end of the procedure the sheath was removed. Perclose device was advanced and the artery, after deployment of the suture I was unable to retract the device and it was stuck in the artery. I attempted with multiple maneuver without success. Then I decided to pull harder on the device until it broke. Then using forceps I was able to retract on the plastic piece and it was fully removed and it was intact. Patient was having active bleeding. Manual pressure applied then FemoStop applied. I proceeded with transfusing 2 units of packed RBCs. Groin appears to be stable. I contacted Dr. Nance in [place] and prepared for emergency transfer for repair of the right femoral artery FINDINGS: Hemodynamics LV 154/20, end-diastolic pressure of 20 Aorta 150/58 mean of 92 ANATOMY: Left Main is occluded Left Anterior Descending is occluded proximally, FRANCIS to LAD is patent Left Circumflex is occluded proximally, vein graft to the obtuse marginal branch is patent Right Coronary Artery has 50 to 60% ostial stenosis, did not change compared to the study of 2018. The vein graft to the right coronary artery is occluded FRANCIS to LAD is patent, the LAD distally is a small artery. Vein Graft evaluation showed marker to 2 vein grafts The lower vein graft is known to be occluded to the right coronary artery The upper vein graft is patent and it is to the obtuse marginal branch filling retrograde full circumflex system LV Gram was not done, pressure was measured CONCLUSION: 1. Total occlusion of the left main coronary artery with patent FRANCIS to LAD and vein graft to the obtuse marginal branch with good flow distally. Small vessel disease distally 2. Occluded vein graft to the right coronary artery with 50 to 60% ostial right coronary artery stenosis. Nonobstructive disease 3. Mildly elevated left ventricular end-diastolic pressure DISCUSSION AND RECOMMENDATION HOSPITAL COURSE: Patient had bleeding from the right groin, was unable to retract Perclose device from the artery and after applying force it appears that the device was retracted fully, I am concerned about a tear or rupture in the femoral artery, hemostasis achieved fully with manual pressure and FemoStop and patient continued to be stable. I elected to transfer the patient urgently for vascular surgery evaluation and possible femoral artery repair. Final diagnosis: Coronary artery disease Hypertension Hyperlipidemia Anesthesia Type: Conscious Sedation Estimated blood loss (mL): 100 ml Contrast Amount: 43 ml Total Radiation Dose: 205 mGy Post-Procedure Diagnosis Post-operative diagnosis: FINAL DIAGNOSIS: Coronary artery disease Hypertension Hyperlipidemia MICHELLE ESQUIVEL MD Jul 10, 2022 10:08
== END ==
LOC: CATH 09:00
PROVIDERS: ATTEND Internal Medicine Cardiovascular Disease
DX: I25.10 Atherosclerotic heart disease of native coronary artery without angina pectoris (principal)
CPT/HCPCS: 71045; 80053; 80061; 85027; 85610; 85730; 86850; 86900; 86901; 86920; 87081; 93005; 93459; C1894; P9016; 36415